=== PATIENT | female | born 1975 | race Caucasian/White ===

== ENCOUNTER → 2017-01-14 | Outpatient (CLI) | payer BC ==
[~2017-01-14] MED LIST: BACTRIM DS TAB1 EACH PO; DIFLUCAN150 MG PO; DITROPAN XL10 MG PO; DOXYCYCLINE MO100 MG PO; IBUPROFEN800 MG PO; PROZAC40 MG PO; TOPAMAX50 MG PO; TOPROL XL 50 MG50 MG PO; WELLBUTRIN XL300 MG PO
== END ==
LOC: KOH-I 11:53
DX: Z01.818 Encounter for other preprocedural examination (principal)
CPT/HCPCS: 71020